=== PATIENT | female | born 1955 | race Caucasian/White ===

== ENCOUNTER 2017-01-26 18:58 | Emergency (ER) | payer SELFPAY ==
[2017-01-26] MEDS ORDERED: AMOXicillin 250 MG CAP ONE (19:15)
[2017-01-26] MEDS ORDERED: Oxymetazoline HCl 0.05% ( 15 ML ) ONE (19:15)
[2017-01-26] MEDS ORDERED: traMADol HCl 50 MG TAB ONE (19:23)
== END 2017-01-26 19:46 | disposition home or self-care (01) ==
LOC: BURERS 18:58
DX: J01.90 Acute sinusitis, unspecified (principal); D50.0 Iron deficiency anemia secondary to blood loss (chronic)
CPT/HCPCS: 99283

== ENCOUNTER 2021-01-05 19:14 | Emergency (ER) | payer SELFPAY | END 2021-01-05 20:05 | disposition home or self-care (01) | LOC: BURERS 19:14 | DX: S92.512A Displaced fracture of proximal phalanx of left lesser toe(s), initial encounter for closed fracture (principal); S92.532A Displaced fracture of distal phalanx of left lesser toe(s), initial encounter for closed fracture; G62.9 Polyneuropathy, unspecified; X58.XXXA Exposure to other specified factors, initial encounter ==

== ENCOUNTER 2024-03-28 08:02 | Emergency (ER) | payer MEDICARE, SELFPAY ==
[2024-03-28] MEDS ORDERED: Bacitracin 1 PK ONE (08:56)
== END 2024-03-28 09:08 | disposition home or self-care (01) ==
LOC: BURERS 08:02
DX: L03.115 Cellulitis of right lower limb (principal); E11.621 Type 2 diabetes mellitus with foot ulcer; L97.519 Non-pressure chronic ulcer of other part of right foot with unspecified severity
CPT/HCPCS: 10120; 36416

== ENCOUNTER 2024-04-16 07:39 | Emergency (ER) | payer MEDICARE ==
[2024-04-16] MEDS ORDERED: Morphine 4 MG/ML VIAL ONE ×2 (07:47→10:54)
[2024-04-16 08:16] LABS: #Basophils 0.1 thou/uL (0.0-0.2); #Eosinophils 0.2 thou/uL (0.0-0.7); #Lymphocytes 2.5 thou/uL (1.20-3.40); #Monocytes 0.5 thou/uL (0.11-0.59); #Neutrophils 6.6 thou/uL (1.40-6.50); %Basophils 0.8 % (0.0-1.0); %Eosinophils 2.1 % (0.0-10.0); %Lymphocytes 25.4 % (21.0-51.0); %Monocytes 5.4 % (0.0-10.0); %Neutrophils 66.4 % (42.0-75.0); Hematocrit 43.3 % (36.0-47.0); Mean Corpuscular HGB CONC 32.4 g/dL (32.0-36.0); Mean Corpuscular Hemoglobin 27.8 pg (27.0-31.0); Mean Platelet Volume 9.5 fL (7.4-10.4); Platelet Count 330 10x3/uL (130-400); RBC Distribution Width 11.5 % (11.5-14.5); Red Blood Cell (RBC) Count 5.04 mill/uL (4.20-5.40)
[2024-04-16 08:19] LABS: INR-International Normal Ratio 1.1; Prothrombin Time 13.7 sec (12.0-14.7)
[2024-04-16 08:28] LABS: ALT (SGPT) 32 U/L (8-55); AST (SGOT) 20 U/L (5-34); Albumin 3.6 g/dL (3.4-4.8); Alkaline Phosphatase 78 U/L (40-110); Anion Gap 16 mmol/L (10-20); BUN (Urea Nitrogen) 11 mg/dL (9.8-20.1); Bilirubin, Total 0.7 mg/dL (0.2-1.2); Calc. Creatinine Clearance 0 mL/min (70-130); Calcium 9.3 mg/dL (7.8-10.44); Carbon Dioxide 20 mmol/L (23-31); Chloride 106 mmol/L (98-107); Estimated GFR 82; Globulin 3.8 g/dL (2.4-3.5); Glucose 175 mg/dL (80-115); Potassium 4.2 mmol/L (3.5-5.1); Protein, Total 7.4 g/dL (5.8-8.1); Sodium 138 mmol/L (136-145)
== END 2024-04-16 11:07 | disposition short-term general hospital (02) ==
LOC: BURERS 07:39
DX: S72.002A Fracture of unspecified part of neck of left femur, initial encounter for closed fracture (principal); E11.9 Type 2 diabetes mellitus without complications; Z79.4 Long term (current) use of insulin; W19.XXXA Unspecified fall, initial encounter
CPT/HCPCS: 71045; 73502; 80053; 85025; 85610; 85730; 93005; 96374; 96376; 99285; J2272